=== PATIENT | male | born 1980 | race Hispanic/Latino ===

== ENCOUNTER 2016-05-09 19:00 | Emergency (ER) | payer SELFPAY ==
[~2016-05-09] VITALS: Ht 170.2 cm; Wt 87.5 kg
--- OUTSIDE RECORDS SUMMARY | 2016-05-09 19:06 | XMS REPORT ---
Author FRANCISCO Lao [facility] e[employer] Address Unknown Phone Unavailable Care Team Providers Care Financial Sales Advisor Name Role Phone FRANCISCO NÚÑEZ Unavailable Allergies No Known Allergies Problems Problem Type Condition Code Onset Dates Condition Status Assessment Diabetes mellitus screening Z13.1 Active Problem Tinea versicolor B36.0 Active Medications No Known Medications Results No Known Results Summary Purpose eClinicalWorks Submission
[2016-05-09] MEDS ORDERED: ORPHENADRINE 60 MG/2 ML (NORFLEX) AMP IV ONE (19:15)
[2016-05-09] MEDS ORDERED: KETOROLAC 30 MG/ML VIAL IVP ONE (19:15)
[2016-05-09 19:23] LABS: BILIRUBIN,URINE NEGATIVE (NEGATIVE); KETONES,URINE NEGATIVE (NEGATIVE); LEUKOCYTE ESTERASE ,URINE NEGATIVE (NEGATIVE); NITRITE,URINE NEGATIVE (NEGATIVE); PH,URINE 5 (5-9); PROTEIN,URINE NEGATIVE (NEGATIVE); UROBILINOGEN,URINE NORMAL (NORMAL)
--- NOTE | 2016-05-09 19:29 | ED Back Pain ---
General Chief Complaint: Back Problems Stated Complaint: LOWER BACK PAIN/HEADACHE Nursing Triage Note: Pt c/o L flank pain x2 days. Pt also c/o PATRICIO and vomiting. Nursing Sepsis Screen: No Definite Risk Source of Information: Patient Exam Limitations: No Limitations History of Present Illness Time Seen by Provider: 19:28 Initial Comments To ER with left low back pain for 2-3 days. This began after an episode of vomiting. Denies any dysuria or diarrhea. The vomiting has resolved. He saw the chiropractor yesterday and states that it did help some. Pain does not radiate. Never had this pain before. No fevers or chills. No trauma to the area. Pain is worsened by movement such as the sitting position and deep breathing/coughing. Location: Lumbar Spine Timing/Duration: 2-3 Days Severity: Moderate Pain/Injury Location: Back Associated Symptoms: No numbness in legs/feet, No tingling in legs/feet, No sensory/motor loss, lower back pain Allergies and Home Medications Allergies Coded Allergies: No Known Drug Allergies (Unverified , 08/27/10) Home Medications #30 5 MG PO TID PRN PRN PAIN Prescribed by: LISS MCLAUGHLIN on 05/09/162002 Naproxen 500 Mg Tablet #14 500 MG PO BID Prescribed by: LISS MCLAUGHLIN on 05/09/162002 Constitutional: see HPINo chills, No fever EENTM: see HPI Respiratory: no symptoms reported Cardiovascular: no symptoms reported Genitourinary: no symptoms reported Musculoskeletal: see HPI back pain Skin: no symptoms reported Past Qslkwss-Frdpot-Nkwyic Hx Patient Social History Alcohol Use: Denies Use Recreational Drug Use: No Smoking Status: Never a Smoker Recent Foreign Travel: No Contact w/Someone Who Travel: No Recent Infectious Disease Expo: No Recent Hopitalizations: No Physical Abuse Screen: No Sexual Abuse: No Seasonal Allergies Seasonal Allergies: No Surgeries HX Surgeries: No Respiratory Hx Respiratory Disorders: No Cardiovascular Hx Cardiac Disorders: Yes Cardiac Disorders: Hypertension Neurological Hx Neurological Disorders: No Reproductive System Hx Reproductive Disorders: No Genitourinary Hx Genitourinary Disorders: No Gastrointestinal Hx Gastrointestinal Disorders: No Musculoskeletal Hx Musculoskeletal Disorders: No Endocrine Hx Endocrine Disorders: No HEENT HX ENT Disorders: No Cancer Hx Cancer: No Psychosocial Hx Psychiatric Problems: No Blood Transfusions Hx Blood Disorders: No Physical Exam Vital Signs Vital Sign - Last 12Hours 05/09/16 19:05 Temp 98.0 Pulse 79 Resp 18 B/P 144/87 Pulse Ox 96 O2 Delivery Room Air Capillary Refill : Less Than 3 Seconds General Appearance: No Apparent Distress WD/WN HEENT: PERRL/EOMI TMs Normal Neck: Full Range of Motion Normal Inspection Cardiovascular: Regular Rate, Rhythm Normal Peripheral Pulses Respiratory: Lungs Clear Normal Breath Sounds No Accessory Muscle Use No Respiratory Distress Gastrointestinal: Normal Bowel Sounds Non Tender Soft Back: Normal Inspection Other (tenderness over the left lower back without ecchymosis or erythema) Extremity: Normal Capillary Refill Normal Inspection Neurologic/Psychiatric: Alert Oriented x3 Skin: Normal Color Warm/Dry Progress/Results/Core Measures Results/Orders Lab Results Laboratory Tests Test 05/09/16 19:14 05/09/16 19:20 Range/Units Urine Bacteria NEGATIVE /HPF Urine Bilirubin NEGATIVE NEGATIVE Urine Casts NONE /LPF Urine Clarity CLEAR Urine Color YELLOW Urine Crystals NONE /LPF Urine Culture Indicated NO Urine Glucose (UA) NEGATIVE NEGATIVE Urine Ketones NEGATIVE NEGATIVE Urine Leukocyte Esterase NEGATIVE NEGATIVE Urine Mucus NEGATIVE /LPF Urine Nitrite NEGATIVE NEGATIVE Urine Protein NEGATIVE NEGATIVE Urine RBC NONE /HPF Urine RBC (Auto) NEGATIVE NEGATIVE Urine Specific [place] 1.015 L 1.016-1.022 Urine Squamous Epithelial Cells 0-2 /HPF Urine Urobilinogen NORMAL NORMAL MG/DL Urine WBC NONE /HPF Urine pH 5 5-9 Anion Gap 10 5-14 MMOL/L BUN/Creatinine Ratio 13 Basophils # (Auto) 0.0 0.0-0.1 10^3/uL Basophils (%) (Auto) 0 0-10 % Blood Urea Nitrogen 13 7-18 MG/DL Calcium Level 9.2 8.5-10.1 MG/DL Carbon Dioxide Level 23 21-32 MMOL/L Chloride Level 107 98-107 MMOL/L Creatinine 0.97 0.60-1.30 MG/DL Eosinophils # (Auto) 0.4 H 0.0-0.3 10^3/uL Eosinophils (%) (Auto) 4 0-10 % Estimat Glomerular Filtration Rate > 60 Glucose Level 132 H 70-105 MG/DL Hematocrit 42 40-54 % Hemoglobin 14.9 13.3-17.7 G/DL Lymphocytes # (Auto) 3.3 1.0-4.0 X 10^3 Lymphocytes (%) (Auto) 35 12-44 % Mean Corpuscular Hemoglobin 28 25-34 PG Mean Corpuscular Hemoglobin Concent 35 32-36 G/DL Mean Corpuscular Volume 79 L 80-99 FL Mean Platelet Volume 10.0 7.4-10.4 FL Monocytes # (Auto) 0.9 0.0-1.0 X 10^3 Monocytes (%) (Auto) 9 0-12 % Neutrophils # (Auto) 4.9 1.8-7.8 X 10^3 Neutrophils (%) (Auto) 51 42-75 % Platelet Count 200 130-400 10^3/uL Potassium Level 3.8 3.6-5.0 MMOL/L Red Blood Count 5.35 4.35-5.85 10^6/uL Red Cell Distribution Width 12.8 10.0-14.5 % Sodium Level 140 135-145 MMOL/L White Blood Count 9.6 4.3-11.0 10^3/uL My Orders Orders-LISS MCLAUGHLIN APRN Ua Culture If Indicated (05/09/16 19:14) Cbc With Automated Diff (05/09/16 19:14) Basic Metabolic Panel (05/09/16 19:14) Saline Lock/Iv-Start (05/09/16 19:14) Ketorolac Injection (Toradol Injection) (05/09/16 19:15) Orphenadrine Injection (Norflex Injectio (05/09/16 19:15) Ct Abd/Pelvis Wo(Kidney Stone) (05/09/16 19:14) Rx-Tramadol Hcl (Rx-Ultram) (05/09/16 20:19) Medications Given in ED Current Medications Medications Dose Ordered Sig/Oumar Route Start Time Stop Time Status Last Admin Dose Admin Ketorolac Tromethamine 30 mg ONCE ONCE IVP 05/09/16 19:15 05/09/16 19:16 DC 05/09/16 19:26 30 MG Orphenadrine Citrate 60 mg ONCE ONCE IV 05/09/16 19:15 05/09/16 19:16 DC 05/09/16 19:26 60 MG Vital Signs/I&O Vital Sign - Last 12Hours 05/09/16 19:05 Temp 98.0 Pulse 79 Resp 18 B/P 144/87 Pulse Ox 96 O2 Delivery Room Air Blood Pressure Mean: 106 Diagnostic Imaging Diagonstic Imaging: CT Comments NAME: ALMA ROSA WILLS REC#: [id number] PT STATUS: REG ER : 1980 PHYSICIAN: LISS MCLAUGHLIN APRN ADMIT DATE: 05/09/16/ER Draft Date of Exam:05/09/16 CT ABD/PELVIS WO(KIDNEY STONE) INDICATION: Left hip pain for three days with nausea. EXAMINATION: CT of the abdomen and pelvis without contrast, 05/09/2016. FINDINGS: No hydronephrosis or nephrolithiasis is seen on either side with no ureteral stone seen on either side. There is diffuse fatty infiltration throughout the liver. The spleen is unremarkable. The adrenal glands and pancreas demonstrate no acute abnormality. There are hyperdensities adjacent to the gallbladder within the liver, nonspecific in nature, perhaps areas of focal fatty sparing. Gallbladder is contracted. There is no ascites or free air. There is no lymphadenopathy. Small fat-containing inguinal hernias are noted, bilaterally. The lung bases demonstrate areas of linear atelectasis and/or scarring. No acute osseous abnormality is appreciated. Minimal wall thickening in the urinary bladder, most likely on the basis of underdistention. Cystitis could cause a similar appearance, clinically correlate with symptoms. Diverticular disease is also noted but no evidence for acute diverticulitis is seen at this time. The appendix is seen and is unremarkable without surrounding inflammatory change. IMPRESSION: No acute process in the abdomen or pelvis with incidental findings as discussed. Dictated on workstation # [id number] Dict: 05/09/161955 Trans: 05/09/162009 [id number] Interpreted by: MARCELINA MCKENZIE MD Electronically signed by: Departure Impression Impression: Primary Impression: Back pain Qualified Code: M54.5 - Low back pain Disposition: 01 HOME, SELF-CARE Condition: Stable Departure-Patient Inst. Decision time for Depature: 20:02 Referrals: VLADIMIR LAUREN MD (PCP/Family) Primary Care Physician Patient Instructions: Low Back Pain (DC) Add. Discharge Instructions: 1. Medication as directed 2. Follow-up with your doctor next week 3. All discharge instructions reviewed with patient and/or family. Voiced understanding. Scripts Naproxen (Naprosyn)500 Mg [id number] Mg PO BID #14 TAB Prov:LISS MCLAUGHLIN APRN 05/09/16 [Flexeril] No Conflict Check5 Mg PO TID PRN PAIN #30 Prov:LISS MCLAUGHLIN APRN 05/09/16 LISS MCLAUGHLIN APRN May 09, 2016 19:29
[2016-05-09 19:33] LABS: BASOPHILS % (AUTO) 0 % (0-10); EOSINOPHILS # (AUTO) 0.4 10^3/uL (0.0-0.3); EOSINOPHILS % (AUTO) 4 % (0-10); LYMPHOCYTES # (AUTO) 3.3 X 10^3 (1.0-4.0); LYMPHOCYTES % (AUTO) 35 % (12-44); MEAN CORPUSCULAR HEMOGLOBIN 28 PG (25-34); MEAN CORPUSCULAR HGB CONC 35 G/DL (32-36); MEAN CORPUSCULAR VOLUME 79 FL (80-99); MONOCYTES # (AUTO) 0.9 X 10^3 (0.0-1.0); MONOCYTES % (AUTO) 9 % (0-12); NEUTROPHILS # (AUTO) 4.9 X 10^3 (1.8-7.8); NEUTROPHILS % (AUTO) 51 % (42-75); PLATELET COUNT 200 10^3/uL (130-400); RED BLOOD COUNT 5.35 10^6/uL (4.35-5.85); RED CELL DISTRIBUTION WIDTH 12.8 % (10.0-14.5); WHITE BLOOD COUNT 9.6 10^3/uL (4.3-11.0)
[2016-05-09 19:41] LABS: ANION GAP 10 MMOL/L (5-14); BLOOD UREA NITROGEN 13 MG/DL (7-18); BUN/CREATININE RATIO 13; CALCIUM 9.2 MG/DL (8.5-10.1); CARBON DIOXIDE 23 MMOL/L (21-32); CHLORIDE 107 MMOL/L (98-107); CREATININE SERUM 0.97 MG/DL (0.60-1.30); GFR ESTIMATED > 60; GLUCOSE 132 MG/DL (70-105); POTASSIUM 3.8 MMOL/L (3.6-5.0); SODIUM 140 MMOL/L (135-145)
[2016-05-09 19:47] LABS: SQUAMOUS EPITHELIAL CELL,UR 0-2 /HPF
[2016-05-09] MEDS ORDERED: Flexeril PO (20:03)
[2016-05-09] MEDS ORDERED: NAPR500T PO (20:03)
--- NOTE | 2016-05-09 20:11 | Diagnostic Imaging Report ---
INDICATION: Left hip pain for three days with nausea. EXAMINATION: CT of the abdomen and pelvis without contrast, 05/09/2016. FINDINGS: No hydronephrosis or nephrolithiasis is seen on either side with no ureteral stone seen on either side. There is diffuse fatty infiltration throughout the liver. The spleen is unremarkable. The adrenal glands and pancreas demonstrate no acute abnormality. There are hyperdensities adjacent to the gallbladder within the liver, nonspecific in nature, perhaps areas of focal fatty sparing. Gallbladder is contracted. There is no ascites or free air. There is no lymphadenopathy. Small fat-containing inguinal hernias are noted, bilaterally. The lung bases demonstrate areas of linear atelectasis and/or scarring. No acute osseous abnormality is appreciated. Minimal wall thickening in the urinary bladder, most likely on the basis of underdistention. Cystitis could cause a similar appearance, clinically correlate with symptoms. Diverticular disease is also noted but no evidence for acute diverticulitis is seen at this time. The appendix is seen and is unremarkable without surrounding inflammatory change. IMPRESSION: No acute process in the abdomen or pelvis with incidental findings as discussed. Dictated by: Dictated on workstation # [id number]
[2016-05-09] MEDS ORDERED: RX-TRAMADOL 50 MG (ULTRAM) TAB PPK#4 PO STA (20:19)
[2016-05-09 20:21] VITALS: BP 138/85
== END 2016-05-09 20:21 | disposition home or self-care (01) ==
LOC: EDUNIT# 19:00 → ER 19:03
DX: M54.5 Low back pain (principal); R51 Headache
CPT/HCPCS: 36415; 74176; 80048; 81000; 85025; 96374; 96375

== ENCOUNTER 2021-02-20 22:29 | Emergency (ER) | payer OTHER ==
[~2021-02-20] VITALS: Ht 173 cm; Wt 88.5 kg
[~2021-02-20 22:29] MED LIST: Flexeril PO; NAPR-1071 PO
[2021-02-20] MEDS ORDERED: KETOROLAC 30 MG/ML VIAL IVP ONE (23:30)
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
[2021-02-20 23:48] LABS: BILIRUBIN,URINE NEGATIVE (NEGATIVE); CLARITY,URINE CLEAR; COLOR,URINE YELLOW; GLUCOSE, URINE (UA) 2+ (NEGATIVE); KETONES,URINE NEGATIVE (NEGATIVE); LEUKOCYTE ESTERASE ,URINE NEGATIVE (NEGATIVE); NITRITE,URINE NEGATIVE (NEGATIVE); PROTEIN,URINE NEGATIVE (NEGATIVE)
[2021-02-20 23:49] LABS: BASOPHILS # (AUTO) 0.1 10^3/uL (0.0-0.1); BASOPHILS % (AUTO) 1 % (0-10); EOSINOPHILS # (AUTO) 0.3 10^3/uL (0.0-0.3); EOSINOPHILS % (AUTO) 3 % (0-10); HEMATOCRIT 44 % (40-54); HEMOGLOBIN 15.3 g/dL (13.3-17.7); LYMPHOCYTES # (AUTO) 3.3 10^3/uL (1.0-4.0); LYMPHOCYTES % (AUTO) 33 % (12-44); MEAN CORPUSCULAR HEMOGLOBIN 28 pg (25-34); MEAN CORPUSCULAR HGB CONC 35 g/dL (32-36); MEAN CORPUSCULAR VOLUME 80 fL (80-99); MEAN PLATELET VOLUME 10.1 fL (9.0-12.2); MONOCYTES % (AUTO) 10 % (0-12); NEUTROPHILS # (AUTO) 5.1 10^3/uL (1.8-7.8); NEUTROPHILS % (AUTO) 51 % (42-75); PLATELET COUNT 208 10^3/uL (130-400)
[2021-02-21 00:10] LABS: BACTERIA,URINE NEGATIVE /HPF; WBC,URINE RARE /HPF
[2021-02-21] MEDS ORDERED: NS 100 ML (IVPB) BAG IV ONE (00:15)
[2021-02-21] MEDS ORDERED: CATHETER FLUSH 10 ML SYR IV PRN (00:15)
[2021-02-21] MEDS ORDERED: HOLD METFORMIN - RECEIVED CONTRAST 20 ML VIAL IV SCH (00:15)
[2021-02-21] MEDS ORDERED: IOHEXOL 350 MG/ML 100 ML (OMNIPAQUE 350) VIAL IV ONE (00:15)
[2021-02-21 00:23] LABS: ALBUMIN 4.4 GM/DL (3.2-4.5); BILIRUBIN,TOTAL 0.8 MG/DL (0.1-1.0); CALCIUM 9.5 MG/DL (8.5-10.1); CREATININE SERUM 0.89 MG/DL (0.60-1.30); POTASSIUM 3.8 MMOL/L (3.6-5.0); TOTAL PROTEIN 8.2 GM/DL (6.4-8.2)
[2021-02-21 00:41] VITALS: BP 121/97
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
== END 2021-02-21 00:41 | disposition home or self-care (01) ==
LOC: EDBD 22:34 → ER 22:34 → MERGE 22:34 → ER 02-21 00:41
DX: R10.30 Lower abdominal pain, unspecified (principal); E11.9 Type 2 diabetes mellitus without complications
CPT/HCPCS: 36415; 72131; 74177; 80053; 81000; 85025

== ENCOUNTER 2022-08-30 12:03 | Emergency (ER) | payer SELFPAY ==
[~2022-08-30] VITALS: Ht 170 cm; Wt 84.0 kg
[2022-08-30] MEDS ORDERED: KETOROLAC 30 MG/ML VIAL IVP STA (12:41)
[2022-08-30] MEDS ORDERED: ORPHENADRINE 60 MG/2 ML (NORFLEX) AMP (ED ONLY) IV STA (12:41)
[2022-08-30] MEDS ORDERED: NS IV 1000 ML 1,000 ML IV ONE (12:45)
--- NOTE | 2022-08-30 12:48 | ED General ---
General Chief Complaint: Back Problems Stated Complaint: LOW BACK PAIN Nursing Triage Note: PT AMB TO [facility] 6 WITH C/O LOW BACK PAIN INTO STOMACH THAT STARTED WEDNESDAY. PT DENIES INJURY. 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 Patient here with complaint of left low back pain that started 6 days ago and is worse now. Den ies any injury. States he was seen at [facility] yesterday and given injection and prescription. States he was doing better after the injection but now is worse today. States pain is radiating around to the front and he has burning pain that comes and goes every 3 minutes. Denies dysuria or diarrhea. Denies blood in his urine or stool. States pain radiates down across the left buttock and left thigh. He does have history of diverticular disease and diabetes. States his blood sugars have been 1 40-1 60. Denies nausea, vomiting, fever or chills. Timing/Duration: 6-7 Days, Getting Worse Severity: Moderate Associated Systoms: No Cough, No Fever/Chills, No Nausea/Vomiting, No Weakness Allergies and Home Medications Allergies Coded Allergies: No Known Drug Allergies (Unverified , 08/30/22) Patient Home Medication List Home Medication List Reviewed: Yes Cyclobenzaprine HCl (Cyclobenzaprine HCl) 10 Mg Tablet, 10 MG PO Q8H PRN for SPASMS Prescribed by: FREDDIE MARIA on 08/30/22 1501 Glyburide (Glyburide) 5 Mg Tablet, 5 MG PO DAILY Prescribed by: FREDDIE MARIA on 08/30/22 1501 Hydrocodone/Acetaminophen (Hydrocodone-Acetamin 5-325 mg) 5 Mg-325 Mg Tablet, 1 TAB PO Q6H PRN for PAIN-MODERATE (5-7) Prescribed by: FREDDIE MARIA on 08/30/22 1501 Naproxen (Naprosyn) 500 Mg Tablet, 500 MG PO BID Prescribed by: LISS MCLAUGHLIN on 05/09/162002 Naproxen (Naprosyn) 500 Mg Tablet, 500 MG PO BID Prescribed by: FREDDIE MARIA on 08/30/22 1501 [Flexeril] , 5 MG PO TID PRN for PAIN Prescribed by: LISS MCLAUGHLIN on 05/09/162002 Review of Systems Review of Systems Constitutional: see HPI; No chills, No fever EENTM: No nose congestion, No throat pain Respiratory: No cough, No short of breath Cardiovascular: no symptoms reported Gastrointestinal: abdominal pain (LLQ); No nausea, No vomiting Genitourinary: No dysuria, No frequency Musculoskeletal: back pain, muscle pain, muscle stiffness Skin: No change in color, No lesions Psychiatric/Neurological: Denies Numbness, Denies Tingling All Other Systems Reviewed Negative Unless Noted: Yes Past Ozupfof-Iffnmc-Kmugme Hx Patient Social History Tobacco Use?: No Substance use?: No Alcohol Use?: No Pt feels they are or have been: No Seasonal Allergies Seasonal Allergies: No Past Medical History Surgery/Hospitalization HX: DM Surgeries: No Respiratory: No Cardiac: Yes Hypertension Neurological: No Reproductive Disorders: No Genitourinary: No Gastrointestinal: No Musculoskeletal: No Endocrine: Yes Diabetes, Non-Insulin dep Family Medical History Reviewed Nursing Family Hx No Pertinent Family Hx Physical Exam Vital Signs Vital Signs - First Documented 08/30/22 12:11 Temp 36.2 Pulse 85 Resp 16 B/P (MAP) 128/97 (107) Pulse Ox 98 O2 Delivery Room Air Capillary Refill : Height, Weight, BMI Height: 5'7" Weight: 193lbs. oz. 87.849951sm; 29.00 BMI Method:Stated General Appearance: No Apparent Distress, WD/WN Neck: Non Tender, Supple Respiratory: Lungs Clear, Normal Breath Sounds Cardiovascular: Regular Rate, Rhythm, No Murmur Gastrointestinal: Soft, Tenderness (Left lower quadrant) Back: No CVA Tenderness, Muscle Spasm, Other (Tenderness to the left flank and left low back with pain across the muscles of the hip) Neurologic/Psychiatric: Alert, Oriented x3 Skin: Normal Color, Warm/Dry Progress/Results/Core Measures Suspected Sepsis SIRS Temperature: Pulse: 85 Respiratory Rate: 16 Laboratory Tests 08/30/22 12:43: White Blood Count 7.4 Blood Pressure 128 /97 Mean: 107 Laboratory Tests 08/30/22 12:43: Creatinine 0.85, Platelet Count 197, Total Bilirubin 0.8 Results/Orders Lab Results Laboratory Tests Test 08/30/22 12:43 08/30/22 12:47 08/30/22 14:36 Range/Units White Blood Count 7.4 4.3-11.0 10^3/uL Red Blood Count 5.32 4.30-5.52 10^6/uL Hemoglobin 14.4 13.3-17.7 g/dL Hematocrit 42 40-54 % Mean Corpuscular Volume 79 L 80-99 fL Mean Corpuscular Hemoglobin 27 25-34 pg Mean Corpuscular Hemoglobin Concent 34 32-36 g/dL Red Cell Distribution Width 11.9 10.0-14.5 % Platelet Count 197 130-400 10^3/uL Mean Platelet Volume 9.8 9.0-12.2 fL Immature Granulocyte % (Auto) 1 % Neutrophils (%) (Auto) 67 42-75 % Lymphocytes (%) (Auto) 20 12-44 % Monocytes (%) (Auto) 9 0-12 % Eosinophils (%) (Auto) 3 0-10 % Basophils (%) (Auto) 0 0-10 % Neutrophils # (Auto) 5.0 1.8-7.8 10^3/uL Lymphocytes # (Auto) 1.5 1.0-4.0 10^3/uL Monocytes # (Auto) 0.7 0.0-1.0 10^3/uL Eosinophils # (Auto) 0.2 0.0-0.3 10^3/uL Basophils # (Auto) 0.0 0.0-0.1 10^3/uL Immature Granulocyte # (Auto) 0.1 0.0-0.1 10^3/uL Sodium Level 138 135-145 MMOL/L Potassium Level 4.2 3.6-5.0 MMOL/L Chloride Level 105 98-107 MMOL/L Carbon Dioxide Level 23 21-32 MMOL/L Anion Gap 10 5-14 MMOL/L Blood Urea Nitrogen 13 7-18 MG/DL Creatinine 0.85 0.60-1.30 MG/DL Estimat Glomerular Filtration Rate 111 BUN/Creatinine Ratio 15 Glucose Level 304 H 70-105 MG/DL Calcium Level 8.8 8.5-10.1 MG/DL Corrected Calcium 9.0 8.5-10.1 MG/DL Total Bilirubin 0.8 0.1-1.0 MG/DL Aspartate Amino Transf (AST/SGOT) 12 5-34 U/L Alanine Aminotransferase (ALT/SGPT) 17 0-55 U/L Alkaline Phosphatase 90 40-136 U/L C-Reactive Protein High Sensitivity 1.76 H 0.00-0.50 MG/DL Total Protein 7.3 6.4-8.2 GM/DL Albumin 3.8 3.2-4.5 GM/DL Urine Color YELLOW Urine Clarity CLEAR Urine pH 6.0 5-9 Urine Specific [place] 1.025 H 1.016-1.022 Urine Protein NEGATIVE NEGATIVE Urine Glucose (UA) 3+ H NEGATIVE Urine Ketones NEGATIVE NEGATIVE Urine Nitrite NEGATIVE NEGATIVE Urine Bilirubin NEGATIVE NEGATIVE Urine Urobilinogen 0.2 < = 1.0 MG/DL Urine Leukocyte Esterase NEGATIVE NEGATIVE Urine RBC (Auto) NEGATIVE NEGATIVE Urine RBC NONE /HPF Urine WBC NONE /HPF Urine Squamous Epithelial Cells 0-2 /HPF Urine Crystals NONE /LPF Urine Bacteria NEGATIVE /HPF Urine Casts NONE /LPF Urine Mucus NEGATIVE /LPF Urine Culture Indicated NO Glucometer 217 H 70-110 MG/DL My Orders Orders - FREDDIE MARIA MD Cbc With Automated Diff (08/30/22 12:41) Comprehensive Metabolic Panel (08/30/22 12:41) Hs C Reactive Protein (08/30/22 12:41) Ua Culture If Indicated (08/30/22 12:41) Ed Iv/Invasive Line Start (08/30/22 12:41) Ns Iv 1000 Ml (Sodium Chloride 0.9%) (08/30/22 12:45) Ketorolac Injection (Toradol Injection) (08/30/22 12:41) Orphenadrine Inj (Ed Only) (Norflex Inje (08/30/22 12:41) Ct Abdomen/Pelvis W (08/30/22 13:10) Iohexol Injection (Omnipaque 350 Mg/Ml 1 (08/30/22 13:15) Received Contrast (Hold Metformin- Contr (08/30/22 13:15) Ns (Ivpb) (Sodium Chloride 0.9% Ivpb Bag (08/30/22 13:15) Medications Given in ED Current Medications Medications Dose Ordered Sig/Oumar Route Start Time Stop Time Status Last Admin Dose Admin Iohexol 100 ml ONCE ONCE IV 08/30/22 13:15 08/30/22 13:16 DC 08/30/22 13:34 80 ML Sodium Chloride 100 ml ONCE ONCE IV 08/30/22 13:15 08/30/22 13:16 DC 08/30/22 13:34 80 ML Sodium Chloride 1,000 ml @ 0 mls/hr Q0M ONCE IV 08/30/22 12:45 08/30/22 12:46 DC 08/30/22 12:54 1,000 MLS/HR Vital Signs/I&O 08/30/22 12:11 Temp 36.2 Pulse 85 Resp 16 B/P (MAP) 128/97 (107) Pulse Ox 98 O2 Delivery Room Air Capillary Refill : Blood Pressure Mean: 107 Progress Note : Progress Note Seen and evaluated. I have reviewed previous history and patient does have diverticular disease on previous CT scan noted on evaluation for left low back pain. Given his history and presentation as well as worsening pain and description of pain, we will go ahead and get IV and check CBC, CMP and UA. I will also check CRP. I am considering CT scan of the abdomen pelvis versus CT scan of the lumbar spine pending labs. We will give normal saline 1 L bolus in anticipation of CT scan with contrast possible. Toradol 30 mg IV and Norflex 60 mg IV for pain. Monitor patient. Differential diagnosis includes diverticulitis, ureteral stone, UTI, lumbar radiculopathy 1310: CT abdomen and pelvis with contrast ordered. Patient does have grossly normal CBC and chemistry also grossly normal but does have elevated glucose. CRP is mildly elevated. UA shows glucose but otherwise is negative. No indication for kidney stone. We will evaluate intra-abdominal pathology and look for bony abnormality. Monitor patient. 1345: CT abdomen pelvis reviewed by me and shows no obvious significant diverticulitis or bony abnormality on my interpretation. Pending radiology report. 1430: Discussed findings with patient via interrelated special education teacher line. No significant intra-abdominal pathology on CT per radiology report. Overall he is feeling better and feels comfortable going home. We will give prescription for naproxen, cyclobenzaprine and a few doses of hydrocodone. We discussed steroids and I will prescribe that short-term to see if that helps and I did discuss with him the challenges with glucose and he will avoid sugary fluids and foods. Discharged home with return precautions, OTC instructions, follow-up instructions and plan. Patient verbalized understanding of instructions and agreement with plan. I did discuss the case with Dr. Gray, on-call for [facility] PCP services. We did discuss his visit yesterday. It does not look like he is on medicines although the patient states he got a prescription for something yesterday and is not sure what that is. After discussion with Dr. Gray, we will initiate glyburide 5 mg daily and she has scheduled appointment with Yesica Barth for him on 09/02/2022 at 11:20 AM. I have instructed the patient to stop his other medicines and just take what I prescribed until he can see Yesica on Wednesday and they can review the medicines. We considered prednisone but decided against that due to blood sugar problems. I did prescribe short course of naproxen and Flexeril. He also did get very short course of hydrocodone 5/325 prescription. 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 Overall feeling much better still. Diagnostic Imaging Diagonstic Imaging: CT Plain Films/CT/US/NM/MRI: abdomen, pelvis Comments [facility], [place] NAME: BHAVESH NEAL [facility] REC#: [id number] PT STATUS: REG ER : 1980 PHYSICIAN: FREDDIE MARIA MD ADMIT DATE: 08/30/22/ER Draft Date of Exam:08/30/22 CT ABDOMEN/PELVIS W EXAMINATION: CT abdomen and pelvis with intravenous contrast. TECHNIQUE: Multiple contiguous axial images were obtained through the abdomen and pelvis after the uneventful administration of intravenous contrast. All CT scans use one or more of the following dose optimizing techniques: automated exposure control, MA and/or KvP adjustment based on patient size and exam type or iterative reconstruction. HISTORY: Flank pain COMPARISON: None available. FINDINGS: Limited views of the lower thorax liver is steatotic. No suspicious liver lesion. The liver is normal without focal lesion. There is no biliary ductal dilation. Gallbladder is normal. Pancreas is normal. Spleen is normal. Adrenal glands are normal. The kidneys are normal. There is no hydronephrosis. Urinary bladder is normal. Bowel is normal in caliber without obstruction or inflammation. There is diverticulosis without diverticulitis. No free fluid or air. No abdominal or pelvic lymphadenopathy. Aorta is normal in caliber without aneurysm. There are no suspicious osseus lesions. IMPRESSION: 1. No acute abnormality in the abdomen or pelvis. Dictated on workstation # [id number] Dict: 08/30/22 1336 Trans: 08/30/22 1340 [facility] [id number] Interpreted by: LINN BAUTISTA MD Electronically signed by: Reviewed: Reviewed by Me Departure Impression Primary Impression: Lumbar radiculopathy Additional Impression: High blood sugar Disposition: 01 HOME, SELF-CARE Condition: Improved Departure-Patient Inst. Decision time for Depature: 14:59 Referrals: VLADIMIR LAUREN MD (PCP/Family) Primary Care Physician Patient Instructions: High Blood Sugar, Adult (DC), Radiculopathy (DC) Add. Discharge Instructions: All discharge instructions reviewed with patient and/or family. Voiced understanding. Take medications as directed. You may additionally take Tylenol/acetaminophen 1000 mg every 6-8 hours as needed for pain but do not take with the hydrocodone containing medication as they both have acetaminophen in them. You have appointment scheduled now with Yesica Barth on 09/02/2022 at 1120 in the morning for follow-up. We are starting you on a new diabetes medication (glyburide) that you will take daily. Make sure you are drinking plenty of fluids. Keep follow-up appointment as scheduled. Return for worse pain, weakness, numbness between your legs, difficulty with walking or going to the bathroom or other concerns as needed. Angustura los medicamentos segn las indicaciones. Tambin puede kirk Tylenol/acetaminophen 1000 mg cada 6-8 horas segn sea necesario para el dolor, breezy no lo tome con el medicamento que contiene hidrocodona ya que ambos contienen acetaminophen. Tiene moshe tristan programada ahora con Yesica Barth el mircoles 02/09/2022 a las 11:20 de la maana para el seguimiento. Comenzaremos con un nuevo medicamento para la diabetes (gliburida) que kirk a diario. Asegrese de beber muchos lquidos. Mantenga la tristan de seguimiento segn lo programado. Regrese si empeora el dolor, debilidad, entumecimiento entre las piernas, dificultad para caminar o ir al ya u otras inquietudes segn sea necesario. Scripts Hydrocodone/Acetaminophen (Hydrocodone-Acetamin 5-325 mg) 5 Mg-325 Mg Tablet 1 TAB PO Q6H PRN for PAIN-MODERATE (5-7) for 7 Days, #6 TAB 0 Refills Prov: FREDDIE MARIA MD 08/30/22 Naproxen (Naprosyn) 500 Mg Tablet 500 MG PO BID, #14 TAB 0 Refills Prov: FREDDIE MARIA MD 08/30/22 Cyclobenzaprine HCl (Cyclobenzaprine HCl) 10 Mg Tablet 10 MG PO Q8H PRN for SPASMS, #15 TAB 0 Refills Prov: FREDDIE MARIA MD 08/30/22 Glyburide (Glyburide) 5 Mg Tablet 5 MG PO DAILY for 30 Days, #30 TAB 0 Refills Prov: FREDDIE MARIA MD 08/30/22 Copy Copies To 1: EDER GRAY TIMOTHY D MD August 30, 2022 12:48
[2022-08-30 12:51] LABS: BASOPHILS % (AUTO) 0 % (0-10); EOSINOPHILS # (AUTO) 0.2 10^3/uL (0.0-0.3); EOSINOPHILS % (AUTO) 3 % (0-10); HEMATOCRIT 42 % (40-54); HEMOGLOBIN 14.4 g/dL (13.3-17.7); LYMPHOCYTES # (AUTO) 1.5 10^3/uL (1.0-4.0); LYMPHOCYTES % (AUTO) 20 % (12-44); MEAN CORPUSCULAR HEMOGLOBIN 27 pg (25-34); MEAN CORPUSCULAR HGB CONC 34 g/dL (32-36); MEAN CORPUSCULAR VOLUME 79 fL (80-99); MEAN PLATELET VOLUME 9.8 fL (9.0-12.2); MONOCYTES # (AUTO) 0.7 10^3/uL (0.0-1.0); MONOCYTES % (AUTO) 9 % (0-12); NEUTROPHILS % (AUTO) 67 % (42-75); PLATELET COUNT 197 10^3/uL (130-400); WHITE BLOOD COUNT 7.4 10^3/uL (4.3-11.0)
[2022-08-30 12:53] LABS: BILIRUBIN,URINE NEGATIVE (NEGATIVE); CLARITY,URINE CLEAR; COLOR,URINE YELLOW; GLUCOSE, URINE (UA) 3+ (NEGATIVE); KETONES,URINE NEGATIVE (NEGATIVE); LEUKOCYTE ESTERASE ,URINE NEGATIVE (NEGATIVE); NITRITE,URINE NEGATIVE (NEGATIVE); PROTEIN,URINE NEGATIVE (NEGATIVE)
[2022-08-30 12:59] LABS: BACTERIA,URINE NEGATIVE /HPF; SQUAMOUS EPITHELIAL CELL,UR 0-2 /HPF
[2022-08-30 13:02] LABS: ALBUMIN 3.8 GM/DL (3.2-4.5); POTASSIUM 4.2 MMOL/L (3.6-5.0)
[2022-08-30 13:03] LABS: CALCIUM 8.8 MG/DL (8.5-10.1)
[2022-08-30 13:05] LABS: TOTAL PROTEIN 7.3 GM/DL (6.4-8.2)
[2022-08-30 13:06] LABS: BILIRUBIN,TOTAL 0.8 MG/DL (0.1-1.0)
[2022-08-30 13:08] LABS: CREATININE SERUM 0.85 MG/DL (0.60-1.30)
[2022-08-30] MEDS ORDERED: HOLD METFORMIN - RECEIVED CONTRAST 20 ML VIAL IV SCH (13:15)
[2022-08-30] MEDS ORDERED: IOHEXOL 350 MG/ML 100 ML (OMNIPAQUE 350) VIAL IV ONE (13:15)
[2022-08-30] MEDS ORDERED: NS 100 ML (IVPB) BAG IV ONE (13:15)
--- NOTE | 2022-08-30 13:41 | Diagnostic Imaging Report ---
EXAMINATION: CT abdomen and pelvis with intravenous contrast. TECHNIQUE: Multiple contiguous axial images were obtained through the abdomen and pelvis after the uneventful administration of intravenous contrast. All CT scans use one or more of the following dose optimizing techniques: automated exposure control, MA and/or KvP adjustment based on patient size and exam type or iterative reconstruction. HISTORY: Flank pain COMPARISON: None available. FINDINGS: Limited views of the lower thorax liver is steatotic. No suspicious liver lesion. The liver is normal without focal lesion. There is no biliary ductal dilation. Gallbladder is normal. Pancreas is normal. Spleen is normal. Adrenal glands are normal. The kidneys are normal. There is no hydronephrosis. Urinary bladder is normal. Bowel is normal in caliber without obstruction or inflammation. There is diverticulosis without diverticulitis. No free fluid or air. No abdominal or pelvic lymphadenopathy. Aorta is normal in caliber without aneurysm. There are no suspicious osseus lesions. IMPRESSION: 1. No acute abnormality in the abdomen or pelvis. Dictated by: Dictated on workstation # [id number]
[2022-08-30] MEDS ORDERED: ACHD5005 PO (15:01)
[2022-08-30] MEDS ORDERED: GLBR5T PO (15:01)
[2022-08-30] MEDS ORDERED: NAPR-1071 PO (15:01)
[2022-08-30] MEDS ORDERED: CYCL10TA25 PO (15:01)
[2022-08-30 15:10] VITALS: BP 116/78
== END 2022-08-30 15:10 | disposition home or self-care (01) ==
LOC: EDUNIT# 12:03 → ER 12:06
DX: M54.16 Radiculopathy, lumbar region (principal); E11.9 Type 2 diabetes mellitus without complications; R79.82 Elevated C-reactive protein (CRP); Z87.19 Personal history of other diseases of the digestive system
CPT/HCPCS: 36415; 74177; 80053; 81000; 82947; 85025; 86141